=== PATIENT | male | born 1990 | race Caucasian/White ===

== ENCOUNTER 2021-02-24 21:17 | Emergency (ER) | payer SELFPAY ==
[2021-02-24 21:28] VITALS: TEMP 97.8; BMI 24.0
[2021-02-24 22:18] LABS: BASO % 0.7 % (0-2.0); EOS % 0.6 % (0-4.5); HEMATOCRIT 45.1 % (35.4-49); HEMOGLOBIN 15.5 GM/dL (11.7-16.9); LYMPH % 27.3 % (8-40); MCH 30.7 pg (25.7-33.7); MCHC 34.4 g/dl (32.0-35.9); MEAN CELL VOLUME 89.3 fl (80-96); MEAN PLT VOLUME 8.1 fl (7.5-11.1); MONO % 7.6 % (3.8-10.2); NEUT % 63.8 % (42.8-82.8); PLATELET COUNT 238 10^3/uL (134-434); RBC 5.05 M/mm3 (4.00-5.60); RDW 13.2 % (11.9-15.9); WHITE BLOOD COUNT 6.7 K/mm3 (4.0-10.0)
[2021-02-24 22:24] LABS: INR 1.14 (0.83-1.09); PROTHROMBIN TIME (PATIENT) 13.3 SEC (9.7-13.0)
[2021-02-24 22:27] LABS: ACTIVATED PTT 34.9 SECONDS (25.2-36.5)
[2021-02-24 22:46] LABS: CHLORIDE 103 mmol/L (98-107); SODIUM 140 mmol/L (136-145)
[2021-02-24 22:47] LABS: CALCIUM 9.3 mg/dL (8.5-10.1)
[2021-02-24 22:48] LABS: ALBUMIN 4.3 g/dl (3.4-5.0); ANION GAP 7 MMOL/L (8-16); BLOOD UREA NITROGEN 21.7 mg/dL (7-18); CO2 31 mmol/L (21-32); GLUCOSE,RANDOM 97 mg/dL (74-106)
[2021-02-24 22:51] LABS: CREATININE 0.9 mg/dL (0.55-1.3); SGOT/AST 13 U/L (15-37); SGPT/ALT 23 U/L (13-61)
[2021-02-24 22:53] LABS: TOT PROT 7.7 g/dl (6.4-8.2)
[2021-02-24 22:54] LABS: ALK PHOS 87 U/L (45-117); BILIRUBIN,TOTAL 1.1 mg/dL (0.2-1)
[2021-02-24 23:22] VITALS: BP 128/73; PULSE 72
== END 2021-02-24 23:23 | disposition home or self-care (01) ==
LOC: JER 21:17
DX: R00.0 Tachycardia, unspecified (principal)
CPT/HCPCS: 36415; 71046-TC-FY; 80053; 84443; 84484; 85025; 85610; 85730; 93005; 93010; 99285-25; C9803; U0003; U0005